=== PATIENT | male | born 2000 | race African-American/Black ===

== ENCOUNTER 2019-06-15 09:48 | Emergency (ER) | payer OTHER ==
[~2019-06-15] VITALS: Ht 185.4 cm; Wt 74.8 kg
== END 2019-06-15 11:30 | disposition home or self-care (01) ==
LOC: ER 09:48 → EDSEX 09:48 → ER 11:16
DX: J03.80 Acute tonsillitis due to other specified organisms (principal); H66.92 Otitis media, unspecified, left ear